=== PATIENT | male | born 1965 | race Caucasian/White ===

== ENCOUNTER 2017-06-20 00:05 | Emergency (ER) | payer SELFPAY ==
[~2017-06-20] VITALS: Ht 180.3 cm; Wt 64.9 kg
--- NOTE | 2017-06-20 00:45 | NUR ---
Patient walked in to ER c/o flu like symptoms. Patient states generalized mild symptoms but states that he is seeking help to obtain food/detention and wishes to speak to a psychiatrist. Patient states he does not have SI/HI and simply wants a referral to psychiatric services. Education provided regarding limited resources in the middle of the night. To room 3A.
[2017-06-20 01:09] LABS: BASOPHILS % (AUTO) 0.5 % (0.0-2.0); EOSINOPHILS % (AUTO) 0.6 % (0.0-7.0); HEMATOCRIT 37.4 % (36.7-47.1); HEMOGLOBIN 12.6 g/dL (12.5-16.3); LYMPHOCYTES % (AUTO) 29.1 % (20.5-51.5); MEAN CORPUSCULAR HGB CONC 34 g/dL (32.5-36.3); MEAN CORPUSCULAR VOLUME 101.3 fL (73.0-96.2); MONOCYTES # (AUTO) 0.7 K/uL (2.0-10.0); MONOCYTES % (AUTO) 10.4 % (0.0-11.0); NEUTROPHILS # (AUTO) 4.2 K/uL (1.8-8.9); NEUTROPHILS % (AUTO) 59.4 % (38.5-71.5); PLATELET COUNT (AUTO) 229 K/uL (152-348); RED BLOOD CELL COUNT(AUTO) 3.69 MIL/uL (4.06-5.63)
[2017-06-20 01:27] LABS: CREATININE 0.7 mg/dL (0.6-1.3); POTASSIUM 3.4 mmol/L (3.5-5.1)
[2017-06-20 01:33] LABS: BILIRUBIN,DIRECT 0.1 mg/dL (0.0-0.2); BILIRUBIN,TOTAL 0.4 mg/dL (0.2-1.0); TOTAL PROTEIN, SERUM 6.9 g/dL (6.4-8.2)
--- NOTE | 2017-06-20 01:45 | NUR ---
Patient's blood sugar noted to be slightly decreased, patient provided with meal tray which he ate 100 percent of the contents. Patient requests to rest in ER at this time. ERMD notified, patient will remain in ER until morning when he can seek further geriatric social worker.
--- NOTE | 2017-06-20 02:30 | NUR ---
Patient is resting comfortably in bed with eyes closed
--- NOTE | 2017-06-20 04:00 | NUR ---
Patient is resting comfortably in bed with eyes closed
--- NOTE | 2017-06-20 05:15 | NUR ---
Patient is resting comfortably in bed with eyes closed
--- NOTE | 2017-06-20 05:53 | NUR ---
Patient given written and verbal discharge instructions. Patient verbalizes understanding of instructions. Patient is ambulatory with steady gait. Refuses offer of snf placement. Patient given list of available shelters in surrounding area.
== END 2017-06-20 05:54 | disposition home or self-care (01) ==
LOC: ER 00:05
DX: R53.1 Weakness (principal); F17.210 Nicotine dependence, cigarettes, uncomplicated; F12.10 Cannabis abuse, uncomplicated; Z88.0 Allergy status to penicillin; Z59.0 Homelessness
CPT/HCPCS: 36415; 85025; A4663

== ENCOUNTER 2018-04-19 01:19 | Emergency (ER) | payer SELFPAY ==
[~2018-04-19] VITALS: Ht 180.3 cm; Wt 68.9 kg
--- NOTE | 2018-04-19 01:36 | NUR ---
Patient walked in to ER c/o weakness and "dehydration." Patient A/O x3, ambulatory with a steady gait, and immediately requested to lay down to sleep. Patient to room 3A.
[2018-04-19] MEDS ORDERED: IV NORMAL SALINE 1000 ML BAG IV ONE (02:45)
[2018-04-19 02:59] LABS: *BILIRUBIN,URIN NEGATIVE (NEGATIVE); *BLOOD, URINE NEGATIVE (NEGATIVE); *CLARITY,URINE CLEAR (CLEAR); *COLOR,URINE YELLOW (YELLOW); *KETONES,URINE NEGATIVE (NEGATIVE); *PROTEIN,URINE NEGATIVE (NEGATIVE); *UROBILINOGEN,URINE 0.2 E.U./dl (NORMAL); LEUKOCYTE ESTERASE ,URINE NEGATIVE (NEGATIVE); NITRITE, URINE NEGATIVE (NEGATIVE); UGLUCOSE NEGATIVE (NEGATIVE)
[2018-04-19 02:59] LABS: BASOPHILS # (AUTO) 0.1 K/uL (0.0-8.0); BASOPHILS % (AUTO) 0.9 % (0.0-2.0); EOSINOPHILS # (AUTO) 0.1 K/uL (0.0-0.7); EOSINOPHILS % (AUTO) 0.9 % (0.0-7.0); HEMATOCRIT 38.6 % (36.7-47.1); HEMOGLOBIN 13.5 g/dL (12.5-16.3); LYMPHOCYTES # (AUTO) 2.4 K/uL (20.0-40.0); LYMPHOCYTES % (AUTO) 32.8 % (20.5-51.5); MEAN CORPUSCULAR HEMOGLOBIN 36.1 uug (23.8-33.4); MEAN CORPUSCULAR HGB CONC 35 g/dL (32.5-36.3); MEAN CORPUSCULAR VOLUME 103.5 fL (73.0-96.2); MONOCYTES # (AUTO) 0.7 K/uL (2.0-10.0); MONOCYTES % (AUTO) 9.5 % (0.0-11.0); NEUTROPHILS # (AUTO) 4.1 K/uL (1.8-8.9); NEUTROPHILS % (AUTO) 55.9 % (38.5-71.5); PLATELET COUNT (AUTO) 212 K/uL (152-348); RED BLOOD CELL COUNT(AUTO) 3.73 MIL/uL (4.06-5.63); WHITE BLOOD COUNT (AUTO) 7.4 K/uL (3.6-10.2)
--- NOTE | 2018-04-19 03:11 | NUR ---
Patient provided with 2 sandwiches, chocolate chip cookie, juice, and fruit - as requested by patient. OK per ERMD.
[2018-04-19 03:14] LABS: BACTERIA,URINE NONE SEEN /HPF (NONE SEEN); RBC,URINE 0-3 /HPF (0-3); SQUAMOUS EPITHELIAL CELL,UR FEW /HPF (NONE SEEN); WBC,URINE 0-3 /HPF (0-3)
[2018-04-19 03:25] LABS: CARBON DIOXIDE 30 mmol/L (21-32); CHLORIDE 102 mmol/L (98-107); CREATININE 0.6 mg/dL (0.6-1.3); GLUCOSE 99 mg/dL (74-106); POTASSIUM 3.5 mmol/L (3.5-5.1); UREA NITROGEN, BLOOD 8 mg/dL (7-18)
[2018-04-19 03:37] LABS: ALANINE AMINOTRANSFERASE 24 U/L (16-63); ALKALINE PHOSPHATASE 82 U/L (50-136); ASPARTATE AMINOTRANSFERASE 20 U/L (15-37); BILIRUBIN,DIRECT 0.1 mg/dL (0.0-0.2); BILIRUBIN,TOTAL 0.6 mg/dL (0.2-1.0); TOTAL PROTEIN, SERUM 7.6 g/dL (6.4-8.2)
--- NOTE | 2018-04-19 04:53 | NUR ---
Patient is resting comfortably in bed with eyes closed
--- NOTE | 2018-04-19 06:28 | NUR ---
Patient is resting comfortably in bed with eyes closed
--- NOTE | 2018-04-19 07:15 | NUR ---
Recieved pt in bed resting comfortably, w/ both eyes closed, NAD noted.
--- NOTE | 2018-04-19 08:04 | NUR ---
Breakfast provided, pt ate 100% of tray. No c/o pain/discomfort.
--- NOTE | 2018-04-19 08:22 | NUR ---
Patient is resting comfortably in bed with eyes closed, NAD noted.
--- NOTE | 2018-04-19 09:01 | NUR ---
IV removed. Catheter intact and site benign. Pressure and 4x4 gauze applied to site. No bleeding noted.
[2018-04-19 09:08] VITALS: BP 115/70
--- NOTE | 2018-04-19 09:16 | NUR ---
Patient discharged in stable conditon. Written and verbal after care instructions given. Patient verbalizes understanding of instructions. Homeless discharge protocal was followed and done. Pt walked out of ER w/ steady gait. Pt took all belongings w/ him.
== END 2018-04-19 09:22 | disposition home or self-care (01) ==
LOC: ER 01:23
DX: E86.0 Dehydration (principal); F17.200 Nicotine dependence, unspecified, uncomplicated; F12.10 Cannabis abuse, uncomplicated; Z59.0 Homelessness; Z88.0 Allergy status to penicillin
CPT/HCPCS: 36415; 70030-TC; 71045; 83605; 85025; 85730; 87040; 87086; 93005; A4663; J3490; J7030

== ENCOUNTER 2018-05-05 21:04 | Emergency (ER) | payer SELFPAY ==
[~2018-05-05] VITALS: Ht 180.3 cm; Wt 64.9 kg
--- NOTE | 2018-05-05 21:23 | NUR ---
Pt ambulated in ER with stable gait with the c/o left laceration 3 hours [employer]. Pt states that he does not know how it happened. Dr. Us at bedside for MSE.
[2018-05-05] MEDS ORDERED: LIDOCAINE HCL 2% 20 ML VIAL TP ONE (21:45)
[2018-05-05] MEDS ORDERED: TDAP DIPH,PERTUSS,TET VAC/PF 0.5 ML DISP.SYRIN IM ONE (21:45)
--- NOTE | 2018-05-05 21:50 | NUR ---
Dressing applied on left ear wound per ER MD orders. Patient refused tetanus vaccination. Education provided. Patient discharged to home in stable conditon. Written and verbal after care instructions given. Patient verbalizes understanding of instructions. Patient ambulated out of ER with stable gait. All belongings taken.
[2018-05-05 21:56] VITALS: BP 114/80
== END 2018-05-05 21:57 | disposition home or self-care (01) ==
LOC: ER 21:04
DX: S01.312A Laceration without foreign body of left ear, initial encounter (principal); F12.10 Cannabis abuse, uncomplicated; Z88.0 Allergy status to penicillin; Z59.0 Homelessness; X58.XXXA Exposure to other specified factors, initial encounter; Y93.89 Activity, other specified; Y92.89 Other specified places as the place of occurrence of the external cause; Y99.8 Other external cause status
CPT/HCPCS: A4663

== ENCOUNTER 2018-05-06 03:50 | Emergency (ER) | payer SELFPAY ==
[~2018-05-06] VITALS: Ht 180.3 cm; Wt 70.3 kg
[2018-05-06] MEDS ORDERED: HYDROCODONE/APAP 5-325MG TABLET ONE (04:13)
[2018-05-06] MEDS ORDERED: HYDROCODONE/APAP 5-325MG TABLET PO ONE (04:15)
--- NOTE | 2018-05-06 04:20 | NUR ---
Patient given written and verbal discharge instructions. Patient verbalizes understanding of instructions. Patient is ambulatory with steady gait. Refuses offer of nursing home placement. Patient given list of available shelters in surrounding area.
[2018-05-06 04:22] VITALS: BP 158/95
== END 2018-05-06 04:23 | disposition home or self-care (01) ==
LOC: ER 03:51
DX: S01.312D Laceration without foreign body of left ear, subsequent encounter (principal); F12.10 Cannabis abuse, uncomplicated; Z59.0 Homelessness; Z88.0 Allergy status to penicillin; X58.XXXD Exposure to other specified factors, subsequent encounter
CPT/HCPCS: A4663

== ENCOUNTER 2018-05-08 03:17 | Emergency (ER) | payer SELFPAY ==
[~2018-05-08] VITALS: Ht 180.3 cm; Wt 61.7 kg
[2018-05-08] MEDS ORDERED: IBUPROFEN 600 MG TABLET PO ONE (04:00)
--- NOTE | 2018-05-08 04:28 | NUR ---
Patient given written and verbal discharge instructions. Patient verbalizes understanding of instructions. Patient is ambulatory with steady gait. Refuses offer of assisted placement. Patient given list of available shelters in surrounding area. Pt. d/c per MD orders, all belongings w/ pt., d/c papers signed, ambulated out of ED w/ steady gait, food and blankets given, NAD,
== END 2018-05-08 04:31 | disposition home or self-care (01) ==
LOC: ER 03:18
DX: S01.312D Laceration without foreign body of left ear, subsequent encounter (principal); F17.200 Nicotine dependence, unspecified, uncomplicated; F12.10 Cannabis abuse, uncomplicated; Z59.0 Homelessness; Z88.0 Allergy status to penicillin; X58.XXXD Exposure to other specified factors, subsequent encounter
CPT/HCPCS: A4663

== ENCOUNTER 2018-05-10 02:02 | Emergency (ER) | payer SELFPAY ==
[~2018-05-10] VITALS: Ht 180.3 cm; Wt 70.3 kg
[2018-05-10] MEDS ORDERED: NAPROXEN 500 MG TABLET PO ONE (02:30)
[2018-05-10] MEDS ORDERED: NAPROXEN 500 MG TABLET ONE (02:31)
--- NOTE | 2018-05-10 02:49 | NUR ---
Pt. left AMA after being seen by MD, refused medication and treatment, refused to sign homeless waiver and discharge papers, ambulated off unit @ aprox. [phone]
== END 2018-05-10 02:51 | disposition left against medical advice (07) ==
LOC: ER 02:04
DX: R51 Headache (principal); M79.642 Pain in left hand; F17.290 Nicotine dependence, other tobacco product, uncomplicated; F12.10 Cannabis abuse, uncomplicated; Z88.0 Allergy status to penicillin; Z59.0 Homelessness
CPT/HCPCS: A4663

== ENCOUNTER 2018-05-12 16:01 | Emergency (ER) | payer SELFPAY ==
[~2018-05-12] VITALS: Ht 180.3 cm; Wt 70.3 kg
--- NOTE | 2018-05-12 16:10 | NUR ---
PATIENT WAS MSE BY DR COHN.
--- NOTE | 2018-05-12 16:27 | NUR ---
PATIENT REFUSED SUTURES TO BE REMOVED AT THIS TIME WAS MADE AWARE OF RISK INVOLVE. PATIENT ACKNOWLEDGE HE WILL GET IT REMOVED AT LATER DATE. SUTURE SITE CLEAN, NO DRAINAGE, NO REDNESS, NO SWELLING. DR COHN AWARE.
[2018-05-12 16:32] VITALS: BP 141/86
== END 2018-05-12 16:35 | disposition home or self-care (01) ==
LOC: ER 16:01
DX: S01.312D Laceration without foreign body of left ear, subsequent encounter (principal); F17.200 Nicotine dependence, unspecified, uncomplicated; F12.10 Cannabis abuse, uncomplicated; Z59.0 Homelessness; Z88.0 Allergy status to penicillin; X58.XXXD Exposure to other specified factors, subsequent encounter
CPT/HCPCS: A4663

== ENCOUNTER 2018-05-12 23:17 | Emergency (ER) | payer SELFPAY ==
[~2018-05-12] VITALS: Ht 180.3 cm; Wt 64.9 kg
--- NOTE | 2018-05-13 00:40 | NUR ---
PATIENT ELOPED. PATIENT WAS NOT SEEN BY ERMD
== END 2018-05-13 01:11 | disposition left against medical advice (07) ==
LOC: ER 23:18
DX: Z53.21 Procedure and treatment not carried out due to patient leaving prior to being seen by health care provider (principal)
CPT/HCPCS: A4663

== ENCOUNTER 2018-05-16 00:09 | Emergency (ER) | payer SELFPAY ==
[~2018-05-16] VITALS: Ht 180.3 cm; Wt 77.1 kg
--- NOTE | 2018-05-16 01:50 | NUR ---
Pt in room 2B
--- NOTE | 2018-05-16 03:34 | NUR ---
Patient discharged to home in stable conditon. Sutures removed. Pt refused to sign discharge after care, threw aftercare instructions and left ER. Pt has steady gait, no acute signs of distress, VSS, all belongings taken.
[2018-05-16 03:36] VITALS: BP 156/76
== END 2018-05-16 03:37 | disposition home or self-care (01) ==
LOC: MERGE 00:13 → ER 00:13
DX: S01.312D Laceration without foreign body of left ear, subsequent encounter (principal); Z88.0 Allergy status to penicillin; Z88.8 Allergy status to other drugs, medicaments and biological substances; X58.XXXD Exposure to other specified factors, subsequent encounter
CPT/HCPCS: A4663

== ENCOUNTER 2018-05-16 20:04 | Emergency (ER) | payer SELFPAY ==
[~2018-05-16] VITALS: Ht 180.3 cm; Wt 67.1 kg
[2018-05-16] MEDS ORDERED: IV NORMAL SALINE 1000 ML BAG IV ONE (20:30)
[2018-05-16] MEDS ORDERED: risperiDONE 2 MG TABLET PO SCH (20:45)
[2018-05-16] MEDS ORDERED: risperiDONE 1 MG TABLET ONE (20:51)
[2018-05-16] MEDS ORDERED: risperiDONE 2 MG TABLET ONE (20:51)
--- NOTE | 2018-05-16 22:05 | NUR ---
Patient discovered to have removed his IV line, the catheter is intact and observed on the floor next to the bed. Patient's arm cleaned and inspected, no phlebitis, erythema, or edema noted. Catheter intact and site benign. Pressure and 4x4 gauze applied to site. No bleeding noted.
--- NOTE | 2018-05-16 22:18 | NUR ---
Patient given written and verbal discharge instructions. Patient verbalizes understanding of instructions. Patient is ambulatory with steady gait. Refuses offer of longterm placement. Patient given list of available shelters in surrounding area.
== END 2018-05-16 22:19 | disposition home or self-care (01) ==
LOC: ER 20:04
DX: E86.0 Dehydration (principal); F29 Unspecified psychosis not due to a substance or known physiological condition; Z71.6 Tobacco abuse counseling; F17.290 Nicotine dependence, other tobacco product, uncomplicated; F15.10 Other stimulant abuse, uncomplicated; Z59.0 Homelessness
CPT/HCPCS: A4663; J7030

== ENCOUNTER 2018-05-25 00:26 | Emergency (ER) | payer SELFPAY ==
[~2018-05-25] VITALS: Ht 180.3 cm; Wt 72.6 kg
--- NOTE | 2018-05-25 02:17 | NUR ---
Pt placed in room 3A.
--- NOTE | 2018-05-25 02:20 | NUR ---
pt ambulates to er with c/o dehydration. denies cp/sob. denies gi/gu distress. denies n/v/d. no acute distress noted.
--- NOTE | 2018-05-25 02:43 | NUR ---
Pt refused to sign discharge paperwork. Patient given written and verbal discharge instructions. Patient verbalizes understanding of instructions. Patient is ambulatory with steady gait. Refuses offer of nursing home placement. Patient given list of available shelters in surrounding area. Pt given meal.
[2018-05-25 02:49] VITALS: BP 124/74
== END 2018-05-25 02:50 | disposition home or self-care (01) ==
LOC: ER 00:28
DX: E86.0 Dehydration (principal); F29 Unspecified psychosis not due to a substance or known physiological condition; F32.9 Major depressive disorder, single episode, unspecified; F17.200 Nicotine dependence, unspecified, uncomplicated; F12.10 Cannabis abuse, uncomplicated; Z59.0 Homelessness; Z88.0 Allergy status to penicillin; Z88.8 Allergy status to other drugs, medicaments and biological substances
CPT/HCPCS: A4663

== ENCOUNTER 2018-06-03 18:25 | Emergency (ER) | payer SELFPAY ==
[~2018-06-03] VITALS: Ht 180.3 cm; Wt 68.0 kg
--- NOTE | 2018-06-03 18:56 | NUR ---
PT IS IN ROOM #2B.
--- NOTE | 2018-06-03 19:15 | NUR ---
Dr. Walsh at bedside for MSE.
[2018-06-03 19:34] LABS: BASOPHILS # (AUTO) 0.1 K/uL (0.0-8.0); BASOPHILS % (AUTO) 1.3 % (0.0-2.0); EOSINOPHILS # (AUTO) 0.1 K/uL (0.0-0.7); EOSINOPHILS % (AUTO) 1.2 % (0.0-7.0); HEMATOCRIT 34.5 % (36.7-47.1); HEMOGLOBIN 11.8 g/dL (12.5-16.3); LYMPHOCYTES # (AUTO) 2.2 K/uL (20.0-40.0); LYMPHOCYTES % (AUTO) 36.3 % (20.5-51.5); MEAN CORPUSCULAR HEMOGLOBIN 34.8 uug (23.8-33.4); MEAN CORPUSCULAR HGB CONC 34 g/dL (32.5-36.3); MEAN CORPUSCULAR VOLUME 101.4 fL (73.0-96.2); MONOCYTES # (AUTO) 0.7 K/uL (2.0-10.0); MONOCYTES % (AUTO) 11.7 % (0.0-11.0); NEUTROPHILS % (AUTO) 49.5 % (38.5-71.5); PLATELET COUNT (AUTO) 227 K/uL (152-348); WHITE BLOOD COUNT (AUTO) 6.1 K/uL (3.6-10.2)
--- NOTE | 2018-06-03 19:43 | NUR ---
Xray at bedside.
[2018-06-03 19:46] LABS: CARBON DIOXIDE 27 mmol/L (21-32); CHLORIDE 103 mmol/L (98-107); CREATININE 0.6 mg/dL (0.6-1.3); GLUCOSE 86 mg/dL (74-106); POTASSIUM 3.5 mmol/L (3.5-5.1); UREA NITROGEN, BLOOD 9 mg/dL (7-18)
[2018-06-03 20:02] LABS: ALANINE AMINOTRANSFERASE 19 U/L (16-63); ASPARTATE AMINOTRANSFERASE 16 U/L (15-37); BILIRUBIN,DIRECT 0.1 mg/dL (0.0-0.2); BILIRUBIN,TOTAL 0.4 mg/dL (0.2-1.0); TOTAL PROTEIN, SERUM 6.5 g/dL (6.4-8.2)
[2018-06-03 20:14] LABS: ALKALINE PHOSPHATASE 74 U/L (50-136)
--- NOTE | 2018-06-03 20:37 | NUR ---
Patient eloped from facility. Caught up with, pt refuses to go back to ER, Pt states he took out IV himself, pt showed arm no IV noted, blood clotted. ER physician notified.
== END 2018-06-03 20:40 | disposition left against medical advice (07) ==
LOC: ER 18:25
DX: R06.00 Dyspnea, unspecified (principal); F12.10 Cannabis abuse, uncomplicated; F17.200 Nicotine dependence, unspecified, uncomplicated; Z88.0 Allergy status to penicillin; Z88.8 Allergy status to other drugs, medicaments and biological substances; Z59.0 Homelessness
CPT/HCPCS: 36415; 70030-TC; 71045; 83605; 85025; 85730; 87040; 93005; A4663

== ENCOUNTER 2018-06-10 23:06 | Emergency (ER) | payer SELFPAY ==
[~2018-06-10] VITALS: Ht 185.4 cm; Wt 77.1 kg
--- NOTE | 2018-06-10 23:20 | NUR ---
Pt ambulates to ER with c/o bilateral foot pain x 4 days. Denies injury to area. No redness/swelling noted. NAD noted.
== END 2018-06-11 00:46 | disposition home or self-care (01) ==
LOC: ER 23:08
DX: Z00.00 Encounter for general adult medical examination without abnormal findings (principal); L84 Corns and callosities; F17.200 Nicotine dependence, unspecified, uncomplicated; F12.10 Cannabis abuse, uncomplicated; Z88.0 Allergy status to penicillin; Z59.0 Homelessness; Z88.8 Allergy status to other drugs, medicaments and biological substances
CPT/HCPCS: A4663

== ENCOUNTER 2018-06-24 23:15 | Emergency (ER) | payer SELFPAY ==
[~2018-06-24] VITALS: Ht 180.3 cm; Wt 81.6 kg
--- NOTE | 2018-06-25 00:15 | NUR ---
CALLED X 3 TIMES NO ANSWER. PT WAS TRIAGED ONLY.
== END 2018-06-25 00:15 | disposition left against medical advice (07) ==
LOC: ER 23:17
DX: Z53.21 Procedure and treatment not carried out due to patient leaving prior to being seen by health care provider (principal)
CPT/HCPCS: A4663

== ENCOUNTER 2018-06-26 00:02 | Emergency (ER) | payer SELFPAY ==
[~2018-06-26] VITALS: Ht 180.3 cm; Wt 81.6 kg
[2018-06-26] MEDS ORDERED: NAPROXEN 500 MG TABLET PO ONE (01:00)
--- NOTE | 2018-06-26 01:15 | NUR ---
Patient given written and verbal discharge instructions. Patient verbalizes understanding of instructions. Patient is ambulatory with stable gait. Refuses offer of prison placement. Patient given list of available shelters in surrounding area.
== END 2018-06-26 01:18 | disposition home or self-care (01) ==
LOC: ER 00:04
DX: M79.642 Pain in left hand (principal); F12.10 Cannabis abuse, uncomplicated; F17.290 Nicotine dependence, other tobacco product, uncomplicated; Z59.0 Homelessness; Z88.0 Allergy status to penicillin; Z88.8 Allergy status to other drugs, medicaments and biological substances
CPT/HCPCS: A4663

== ENCOUNTER 2018-08-12 06:38 | Emergency (ER) | payer MEDICAID ==
[~2018-08-12] VITALS: Ht 180.3 cm; Wt 84.8 kg
--- NOTE | 2018-08-12 06:58 | NUR ---
Patient discharged to home in stable conditon. Written and verbal after care instructions given. Patient verbalizes understanding of instructions. Pt. d/c w/ prescription per MD order, d/c papers signed, all belongings w/ pt., ID band removed, ambulated off unit w/ steady gait, NAD
== END 2018-08-12 07:00 | disposition home or self-care (01) ==
LOC: ER 06:38
DX: B35.3 Tinea pedis (principal); F17.290 Nicotine dependence, other tobacco product, uncomplicated; F12.10 Cannabis abuse, uncomplicated; Z59.0 Homelessness; Z88.8 Allergy status to other drugs, medicaments and biological substances; Z88.0 Allergy status to penicillin
CPT/HCPCS: A4663

== ENCOUNTER 2019-01-06 01:21 | Emergency (ER) | payer MEDICAID ==
[~2019-01-06] VITALS: Ht 180.3 cm; Wt 68.0 kg
[2019-01-06] MEDS ORDERED: IBUPROFEN 600 MG TABLET PO ONE (01:45)
[2019-01-06] MEDS ORDERED: IBUPROFEN 600 MG TABLET ONE (01:46)
--- NOTE | 2019-01-06 01:49 | NUR ---
Patient given written and verbal discharge instructions. Patient verbalizes understanding of instructions. Patient is ambulatory with stable gait. Refuses offer of intermediate placement. Patient given list of available shelters in surrounding area.
== END 2019-01-06 01:56 | disposition home or self-care (01) ==
LOC: ER 01:22
DX: B34.9 Viral infection, unspecified (principal); F32.9 Major depressive disorder, single episode, unspecified; F17.200 Nicotine dependence, unspecified, uncomplicated; F12.10 Cannabis abuse, uncomplicated; Z88.0 Allergy status to penicillin; Z88.8 Allergy status to other drugs, medicaments and biological substances; Z59.0 Homelessness
CPT/HCPCS: A4663

== ENCOUNTER 2019-03-04 04:08 | Emergency (ER) | payer MEDICAID ==
[~2019-03-04] VITALS: Ht 185.4 cm; Wt 74.8 kg
[2019-03-04 07:15] VITALS: BP 128/64
--- NOTE | 2019-03-04 07:16 | NUR ---
Patient given written and verbal discharge instructions. Patient verbalizes understanding of instructions. Patient is ambulatory with steady gait. Refuses offer of residential placement. Patient given list of available shelters in surrounding area.
== END 2019-03-04 07:17 | disposition home or self-care (01) ==
LOC: ER 04:09
DX: J06.9 Acute upper respiratory infection, unspecified (principal); F32.9 Major depressive disorder, single episode, unspecified; F17.200 Nicotine dependence, unspecified, uncomplicated; F12.10 Cannabis abuse, uncomplicated; Z59.0 Homelessness; Z88.0 Allergy status to penicillin; Z88.8 Allergy status to other drugs, medicaments and biological substances
CPT/HCPCS: A4663

== ENCOUNTER 2019-03-06 03:03 | Emergency (ER) | payer MEDICAID ==
[~2019-03-06] VITALS: Ht 180.3 cm; Wt 70.3 kg
--- NOTE | 2019-03-06 03:12 | NUR ---
Dr. Lyn at bedside for MSE
[2019-03-06 04:38] VITALS: BP 116/72
--- NOTE | 2019-03-06 04:38 | NUR ---
Patient given written and verbal discharge instructions. Patient verbalizes understanding of instructions. Patient is ambulatory with steady gait. Arm band removed. Refuses offer of [facility] placement. Patient given list of available shelters in surrounding area.
== END 2019-03-06 04:37 | disposition home or self-care (01) ==
LOC: ER 03:04
DX: J06.9 Acute upper respiratory infection, unspecified (principal); F32.9 Major depressive disorder, single episode, unspecified; F17.200 Nicotine dependence, unspecified, uncomplicated; F12.10 Cannabis abuse, uncomplicated; Z88.0 Allergy status to penicillin; Z88.8 Allergy status to other drugs, medicaments and biological substances
CPT/HCPCS: 71046; 87400; A4663

== ENCOUNTER 2019-04-01 02:54 | Emergency (ER) | END 2019-04-01 03:30 | disposition home or self-care (01) | DX: L20.9 Atopic dermatitis, unspecified (principal); F32.9 Major depressive disorder, single episode, unspecified; F17.200 Nicotine dependence, unspecified, uncomplicated; F12.10 Cannabis abuse, uncomplicated; Z88.0 Allergy status to penicillin; Z88.8 Allergy status to other drugs, medicaments and biological substances; Z59.0 Homelessness ==

== ENCOUNTER 2019-06-20 16:17 | Emergency (ER) | payer SELFPAY ==
[~2019-06-20] VITALS: Ht 180.3 cm; Wt 59.9 kg
--- NOTE | 2019-06-20 16:30 | NUR ---
Patient was MSE by Dr Us in room 02A. patient A & O X4
--- NOTE | 2019-06-20 16:44 | NUR ---
Patient discharged to home in stable condition. Written and verbal after care instructions given. Patient verbalizes understanding of instructions.
[2019-06-20 16:52] VITALS: BP 128/77
== END 2019-06-20 16:53 | disposition home or self-care (01) ==
LOC: ER 16:21
DX: B37.2 Candidiasis of skin and nail (principal); F17.200 Nicotine dependence, unspecified, uncomplicated; Z88.8 Allergy status to other drugs, medicaments and biological substances; Z88.0 Allergy status to penicillin; Z59.0 Homelessness
CPT/HCPCS: A4663

== ENCOUNTER 2019-07-17 00:17 | Emergency (ER) | payer SELFPAY ==
[~2019-07-17] VITALS: Ht 180.3 cm; Wt 74.8 kg
--- NOTE | 2019-07-17 00:35 | NUR ---
Pt presented to ER walking w/steady gait in stable condition c/o R hip and knee pain 10/14. Pt states" I had right hip surgery few years ago and lately pain hasn't been letting me sleep".Patient is AOx3, speaking in complete sentences, speech is clear. Patient is able to follow /comprehend directions. Gait is stable. No cardiovascular distress noted. Rate and rhythm are regular. No CP. No respiratory distress noted. Respirations even & unlabored with symmetrical chest rise. No adventitious sounds noted. Patient is on bed. Bed is in lowest position. Siderails are up x 2. Call light within reach. I will continue to monitor accordingly.
--- NOTE | 2019-07-17 00:50 | NUR ---
xray in room.
--- NOTE | 2019-07-17 01:56 | NUR ---
Patient given written and verbal discharge instructions. Patient verbalizes understanding of instructions. Patient is ambulatory with steady gait,Pt A/O x3 ,V/S stable. Refuses offer of assisted placement. Patient given list of available shelters in surrounding area.Pt was given new socks and a sandwich to go.All belongings went with patient.
[2019-07-17 02:14] VITALS: BP 105/70
== END 2019-07-17 01:56 | disposition home or self-care (01) ==
LOC: ER 00:19
DX: M25.561 Pain in right knee (principal); M25.551 Pain in right hip; Z59.0 Homelessness; F17.210 Nicotine dependence, cigarettes, uncomplicated
CPT/HCPCS: 72170; 73502; 73562; A4663

== ENCOUNTER 2019-09-23 01:35 | Emergency (ER) | payer SELFPAY ==
--- NOTE | 2019-09-23 01:50 | NUR ---
Patient left without being triaged or seen by ERMD.
== END 2019-09-23 02:19 | disposition left against medical advice (07) ==
LOC: ER 01:38
DX: Z75.3 Unavailability and inaccessibility of health-care facilities (principal)